=== PATIENT | female | born 1940 | race Caucasian/White ===

== ENCOUNTER 2019-04-10 17:07 | Emergency (ER) | payer MEDICARE, BC ==
[~2019-04-10] VITALS: Ht 167.6 cm; Wt 89.5 kg
[~2019-04-10 17:07] MED LIST: ESCI10TA PO; FURO-145 PO; METO25TA20 PO; SIMV10TA6 PO
--- NOTE | 2019-04-10 17:18 | NUR ---
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 DENIES SOB, WEAKNESS, NO ACUTE DISTRESS NOTED. NO OTHER COMPLAINTS AT THIS TIME. PT IS AMB, AOX4, VSS, RR EVEN AND UNLABORED ON RA. PLACED IN GOWN, ON MONITOR, AND READY FOR EVAL.
[2019-04-10 17:49] LABS: BASOPHILS # (AUTO) 0.1 /CMM (0.0-0.2); BASOPHILS % (AUTO) 0.9 % (0.0-2.0); EOSINOPHILS % (AUTO) 4.1 % (0.0-6.0); HEMATOCRIT 41 % (33-45); HEMOGLOBIN 13.6 g/dL (11.5-14.8); LYMPHOCYTES # (AUTO) 3.9 /CMM (0.8-4.8); LYMPHOCYTES % (AUTO) 35.8 % (20.0-44.0); MEAN CORPUSCULAR HGB CONC 33 g/dl (31.0-36.0); MEAN CORPUSCULAR VOLUME 93 fL (82-100); MONOCYTES # (AUTO) 1.2 /CMM (0.1-1.30); MONOCYTES % (AUTO) 10.5 % (2.0-12.0); NEUTROPHILS # (AUTO) 5.4 /CMM (1.8-8.9); NEUTROPHILS % (AUTO) 48.7 % (43.0-81.0); PLATELET COUNT (AUTO) 274 /CMM (150-450); RED BLOOD CELL COUNT(AUTO) 4.45 MIL/uL (4.0-5.2)
[2019-04-10 17:55] LABS: CALCIUM, SERUM 8.8 mg/dL (8.5-10.1); CARBON DIOXIDE 28 mmol/L (21-32); CHLORIDE 107 mmol/L (98-107); GLUCOSE 101 mg/dL (74-106); POTASSIUM 3.8 mmol/L (3.5-5.1); SODIUM SERUM 140 mmol/L (136-145); UREA NITROGEN, BLOOD 22 mg/dL (7-18)
--- NOTE | 2019-04-10 18:27 | NUR ---
PT STATES FEELING MUCH BETTER, DENIES ANY CHEST PAIN AT THIS TIME.
--- NOTE | 2019-04-10 19:28 | NUR ---
PT GIVEN JUICE
--- NOTE | 2019-04-10 21:27 | NUR ---
Patient is resting comfortably in bed. Easily aroused. VSS. AWAITING TROPONIN REFLEX
--- NOTE | 2019-04-10 21:56 | NUR ---
Patient discharged to home in stable condition. Written and verbal after care instructions given. Patient verbalizes understanding of instruction.
[2019-04-10 22:16] VITALS: BP 146/82
== END 2019-04-10 21:57 | disposition home or self-care (01) ==
LOC: ER 17:07
DX: R07.89 Other chest pain (principal); I10 Essential (primary) hypertension; E78.00 Pure hypercholesterolemia, unspecified; Z85.43 Personal history of malignant neoplasm of ovary; Z79.899 Other long term (current) drug therapy
CPT/HCPCS: 36415; 71045-TC; 80048-TC; 84484-TC; 85025-TC

== ENCOUNTER 2020-09-07 12:35 | Emergency (ER) | payer MEDICARE, BC ==
[~2020-09-07] VITALS: Ht 167.6 cm; Wt 81.6 kg
[~2020-09-07 12:35] MED LIST changes: -SIMV10TA6 PO; +SIMV10TA98 PO
--- NOTE | 2020-09-07 12:38 | NUR ---
CALLED TO TRIAGE NO ANSWER.
[2020-09-07] MEDS ORDERED: PANT40TA49 PO (12:42)
[2020-09-07] MEDS ORDERED: SIMV-46 PO (12:42)
[2020-09-07] MEDS ORDERED: MELO-107 PO (12:42)
[2020-09-07] MEDS ORDERED: MONT10TA22 PO (12:42)
[2020-09-07] MEDS ORDERED: LORA-258 PO (12:42)
--- NOTE | 2020-09-07 13:56 | NUR ---
PATIENT A/OX4, BREATHING EVEN AND UNLABORED, NO SOB NOTED. AMBULATORY WITH STEADY GAIT. Patient discharged to home in stable condition. Written and verbal after care instructions given. Patient verbalizes understanding of instruction.
[2020-09-07 13:57] VITALS: BP 147/76
== END 2020-09-07 13:57 | disposition home or self-care (01) ==
LOC: ER 12:37
DX: S09.8XXA Other specified injuries of head, initial encounter (principal); I10 Essential (primary) hypertension; E78.00 Pure hypercholesterolemia, unspecified; Z90.89 Acquired absence of other organs; Z98.890 Other specified postprocedural states; Z85.43 Personal history of malignant neoplasm of ovary; Z60.2 Problems related to living alone; Z79.899 Other long term (current) drug therapy; X58.XXXA Exposure to other specified factors, initial encounter; Y93.89 Activity, other specified; Y92.89 Other specified places as the place of occurrence of the external cause; Y99.8 Other external cause status
CPT/HCPCS: 70450-TC

== ENCOUNTER 2025-07-31 08:44 | Emergency (ER) | payer BC, MEDICARE ==
[~2025-07-31] VITALS: Ht 165.1 cm; Wt 78.9 kg
[~2025-07-31 08:44] MED LIST changes: +LORA-258 PO; +MELO-107 PO; +MONT10TA22 PO; +PANT40TA49 PO; +SIMV-46 PO; -SIMV10TA98 PO
[2025-07-31 10:43] VITALS: BP 128/72; TEMP 98.7; O2SAT 99
== END 2025-07-31 10:44 | disposition home or self-care (01) ==
LOC: ER 08:50
DX: R53.1 Weakness (principal); R19.7 Diarrhea, unspecified; I11.9 Hypertensive heart disease without heart failure; E78.00 Pure hypercholesterolemia, unspecified; Z79.1 Long term (current) use of non-steroidal anti-inflammatories (NSAID); Z79.899 Other long term (current) drug therapy; Z85.43 Personal history of malignant neoplasm of ovary